=== PATIENT | female | born 1990 | race Caucasian/White ===

== ENCOUNTER 2016-04-25 10:47 | Observation (INO) | payer MEDICAID ==
[~2016-04-25] VITALS: Ht 149.9 cm; Wt 56.4 kg
[2016-04-25] VITALS (9 sets, daily range): BP systolic 94–113; BP diastolic 41–64; PULSE 76–102; TEMP 98.2–98.6
[~2016-04-25 10:47] MED LIST: ATIVAN0.5 MG PO; LEVEMIR FLEXPEN SC; MOTRIN 600600 MG/TAB PO; NOVOLOG FLEX100 U/ML SC; PERCOCET 325 MG1 TA2 PO; PRENATAL VITAMI1 TAB PO
[2016-04-25 12:24] LABS: BASO % 0.1 % (0.0-2.0); EOS % 0.4 % (0-4.0); GRAN # 7.3 (1.4-6.5); GRAN % 69.1 % (42.2-75.2); LYMPH # 2.6 (1.2-3.4); LYMPH % 24.5 % (20.0-51.0); MEAN CELL VOLUME 91 fl (80.0-100.0); MEAN CORPUSCULAR HGB CONC 34 g/dl (33.0-37.0); MEAN PLATELET VOLUME 10.7 fl (7.4-10.4); MONO # 0.6 (0.1-0.6); MONO % 5.5 % (1.7-9.3); PLATELET COUNT 333 K/mm3 (130-400); RED BLOOD COUNT 2.41 M/mm3 (4.10-5.30); REDCELL DISTRIBUTION WIDTH-CV 12.5 % (11.5-14.5); WHITE BLOOD COUNT 10.6 K/mm3 (4.8-10.8)
[2016-04-25 12:30] LABS: HEMATOCRIT 21.9 % (37.0-47.0); HEMOGLOBIN 7.4 g/dl (12.5-16.0); MEAN CORPUSCULAR HEMOGLOBIN 31 pg (27.0-31.0)
[2016-04-25 12:35] LABS: ADJUSTED CALCIUM 9.1 mg/dL (8.4-10.2); ALBUMIN 3.3 gm/dL (3.5-5.0); BILIRUBIN,TOTAL 0.4 mg/dL (0.0-1.0); CALCIUM 8.5 mg/dL (8.4-10.2); CREATININE, serum 0.68 mg/dL (0.52-1.25); POTASSIUM 3.4 mmol/L (3.4-5.0); TOTAL PROTEIN 6.1 gm/dL (6.4-8.2)
[2016-04-25] MEDS ORDERED: MOTRIN 800800 MG/TAB PO (14:10)
[2016-04-25 17:56] LABS: HEMATOCRIT 15.9 % (37.0-47.0)
[2016-04-25 17:57] LABS: HEMOGLOBIN 5.3 g/dl (12.5-16.0)
== END 2016-04-25 19:15 | disposition home or self-care (01) ==
LOC: COL.ER 10:47 → OB 13:41
PROVIDERS: Obstetrics & Gynecology; Physician Assistant
DX: O03.4 Incomplete spontaneous abortion without complication (principal); D64.9 Anemia, unspecified
CPT/HCPCS: J2210; J2270; J2405; J2704; J7030; J7120

== ENCOUNTER 2020-12-23 08:53 | Emergency (ER) | payer OTHER, BC ==
[~2020-12-23] VITALS: Ht 149.9 cm; Wt 63.6 kg
[~2020-12-23 08:53] MED LIST changes: +MOTRIN 800800 MG/TAB PO
[2020-12-23 09:01] VITALS: TEMP 99.1
[2020-12-23 10:17] VITALS: BP 121/71; PULSE 80
== END 2020-12-23 10:16 | disposition home or self-care (01) ==
LOC: COL.ER 08:53
DX: S40.212A Abrasion of left shoulder, initial encounter (principal); V43.52XA Car driver injured in collision with other type car in traffic accident, initial encounter

== ENCOUNTER 2023-11-28 14:49 | Emergency (ER) | payer BC ==
[~2023-11-28] VITALS: Ht 149.9 cm; Wt 65.9 kg
[2023-11-28 14:54] VITALS: TEMP 98.2
[2023-11-28] MEDS ORDERED: LR 1,000 ML IV ONE ×2 (15:15→16:00)
[2023-11-28] MEDS ORDERED: Ondansetron 4 MG/2 ML VIAL IV ONE ×2 (15:15→16:00)
[2023-11-28 15:31] LABS: BASO % 0.3 % (0.0-2.0); EOS % 0.4 % (0.0-4.0); GRAN # 6.7 K/mm3 (1.4-6.5); GRAN % 68.6 % (42.2-75.2); HEMATOCRIT 40.6 % (37.0-47.0); HEMOGLOBIN 13.9 g/dl (12.5-16.0); LYMPH # 1.8 K/mm3 (1.2-3.4); LYMPH % 18.2 % (20.0-51.0); MEAN CELL VOLUME 90 fl (80.0-100.0); MEAN CORPUSCULAR HEMOGLOBIN 31 pg (27-31); MEAN CORPUSCULAR HGB CONC 34 g/dl (33.0-37.0); MEAN PLATELET VOLUME 10.7 fl (7.4-10.4); MONO # 1.2 K/mm3 (0.1-0.6); MONO % 12.1 % (1.7-9.3); PLATELET COUNT 360 K/mm3 (130-400); RED BLOOD COUNT 4.49 M/mm3 (4.10-5.30); REDCELL DISTRIBUTION WIDTH-CV 11.9 % (11.5-14.5)
[2023-11-28 15:47] LABS: ALBUMIN 4.1 g/dL (3.5-5.0); BILIRUBIN,TOTAL 0.6 mg/dL (0.2-1.2); CREATININE, serum 1.6 mg/dL (0.57-1.11); POTASSIUM 3.5 mEq/L (3.5-4.5); TOTAL PROTEIN 7.5 g/dl (6.2-8.1)
[2023-11-28] MEDS ORDERED: Morphine 4 MG/ML VIAL IV ONE (16:00)
[2023-11-28] MEDS ORDERED: Iohexol 300 - 100 ML VIAL IV ONE (16:26)
[2023-11-28] MEDS ORDERED: NS 100 ML IV SCH (16:26)
[2023-11-28 16:34] LABS: URINE APPEARANCE CLEAR (CLEAR/HAZY); URINE BLOOD NEGATIVE (NEGATIVE); URINE COLOR YELLOW (YELLOW); URINE GLUCOSE NEGATIVE (NEGATIVE); URINE KETONE NEGATIVE (NEGATIVE); URINE NITRATE NEGATIVE (NEGATIVE); URINE PROTEIN(semi-quant) NEGATIVE (NEGATIVE); URINE UROBILINOGEN 0.2 E.U/dL (0.2-1.0)
[2023-11-28 16:51] LABS: COLLECTION METHOD CLEAN CATCH
[2023-11-28 18:20] VITALS: BP 123/60; PULSE 97
== END 2023-11-28 18:20 | disposition home or self-care (01) ==
LOC: COL.ER 14:49
PROVIDERS: Emergency Medicine
DX: R10.11 Right upper quadrant pain (principal); R10.31 Right lower quadrant pain
CPT/HCPCS: J2270; J2405; J7120; Q9967

== ENCOUNTER → 2023-12-06 | Outpatient (CLI) | payer BC | LOC: COL.RAD 06:51 | DX: K76.0 Fatty (change of) liver, not elsewhere classified (principal) ==